=== PATIENT | female | born 1960 | race Caucasian/White ===

== ENCOUNTER 2020-06-17 07:49 | Day surgery (SDC) | payer OTHER, SELFPAY ==
[~2020-06-17] VITALS: Ht 157.5 cm; Wt 63.5 kg
[2020-06-17] MEDS ORDERED: fentaNYL citrate 0.05 MG/ML VIAL ONE (08:44)
[2020-06-17] MEDS ORDERED: MIDAZOLAM 5 MG/5 ML VIAL ONE (08:44)
[2020-06-17] MEDS ORDERED: LIDOCAINE 2% 100 MG/5 ML UJET TP ONE (08:44)
[2020-06-17] MEDS ORDERED: diphenhydrAMINE 50 MG/ML VIAL ONE (08:44)
[2020-06-17] MEDS: MIDAZOLAM 2 MG/2 ML VIAL IVP ONE (08:56)
[2020-06-17] MEDS: fentaNYL citrate 0.05 MG/ML VIAL IVP ONE (08:57)
[2020-06-17] MEDS: LIDOCAINE 2% 100 MG/5 ML UJET TP ONE (08:59)
== END 2020-06-17 10:30 | disposition home or self-care (01) ==
LOC: MDS 07:49 → MFCC 07:49 → MDS 10:30
PROVIDERS: ATTEND Internal Medicine Gastroenterology
DX: R10.9 Unspecified abdominal pain (principal); K86.2 Cyst of pancreas; K63.5 Polyp of colon; E11.9 Type 2 diabetes mellitus without complications; E78.00 Pure hypercholesterolemia, unspecified; I10 Essential (primary) hypertension; Z79.899 Other long term (current) drug therapy
CPT/HCPCS: 45385; J2250; J3010; U0003; J1200

== ENCOUNTER 2020-08-12 06:56 | Day surgery (SDC) | payer OTHER, SELFPAY ==
[~2020-08-12] VITALS: Ht 152.4 cm; Wt 66.2 kg
[2020-08-12] MEDS ORDERED: diphenhydrAMINE 50 MG/ML VIAL ONE (08:39)
[2020-08-12] MEDS ORDERED: fentaNYL citrate 0.05 MG/ML VIAL ONE (08:39)
[2020-08-12] MEDS ORDERED: MIDAZOLAM 5 MG/5 ML VIAL ONE (08:40)
[2020-08-12] MEDS ORDERED: LIDOCAINE 2% 100 MG/5 ML UJET TP ONE ×2 (08:40→09:05)
[2020-08-12] MEDS ORDERED: MIDAZOLAM 2 MG/2 ML VIAL IVP ONE (09:05)
[2020-08-12] MEDS ORDERED: fentaNYL citrate 0.05 MG/ML VIAL IVP ONE (09:05)
== END 2020-08-12 10:00 | disposition home or self-care (01) ==
LOC: MDS 06:56 → MMU 06:58 → MDS 10:00
PROVIDERS: ATTEND Internal Medicine Gastroenterology
DX: R10.9 Unspecified abdominal pain (principal); K63.5 Polyp of colon; Z86.010 Personal history of colon polyps; I10 Essential (primary) hypertension; E11.9 Type 2 diabetes mellitus without complications; E78.00 Pure hypercholesterolemia, unspecified; Z79.899 Other long term (current) drug therapy; Z20.828 Contact with and (suspected) exposure to other viral communicable diseases
CPT/HCPCS: 45385; J2250; J3010; U0003; J1200